=== PATIENT | male | born 1980 | race Caucasian/White ===

== ENCOUNTER 2023-04-25 21:57 | Inpatient (IN) | payer MEDICAID ==
[~2023-04-25] VITALS: Ht 165.1 cm; Wt 72.6 kg
[2023-04-25 22:54] LABS: BASOPHILS % 0.5 % (0.0-2.0); EOSINOPHILS % 1.8 % (0.0-5.0); HEMATOCRIT. 38.2 % (42.0-52.0); HEMOGLOBIN. 13.1 g/dL (14.0-18.0); LYMPHOCYTES % 17.8 % (20.0-50.0); MEAN CORPUSCULAR HEMOGLOBIN 27.6 pg (28.0-32.0); MEAN CORPUSCULAR HGB CONC 34.3 g/dL (31.0-37.0); MEAN CORPUSCULAR VOLUME 80.5 fL (80.0-94.0); MEAN PLATELET VOLUME 9.1 fl (7.4-10.4); MONOCYTES % 8.2 % (2.0-8.0); NEUTROPHILS % 71.7 % (40.0-76.0); PLATELET 183 x1000/uL (130-400); RED BLOOD CELL COUNT 4.74 mill/uL (4.7-6.1); RED CELL DISTRIBUTION WIDTH 13.6 % (11.6-14.6); WHITE BLOOD COUNT 7.1 x1000/uL (4.5-11.0)
[2023-04-25 23:00] LABS: CHLORIDE 108 mEq/L (98-107); INDEX HEMOLYSI 1 (1-3); INDEX ICTERIC 1 (1-4); INDEX LIPEMIC 1 (1-3); POTASSIUM 3.6 mEq/L (3.5-5.1); SODIUM 137 mEq/L (136-145)
[2023-04-25 23:09] LABS: ALANINE AMINOTRANSFERASE 49 IU/L (13-61); ALBUMIN 3.7 g/dL (3.4-5.0); ASPARTATE AMINOTRANSFERASE 24 IU/L (15-37); BILIRUBIN TOTAL 0.3 mg/dL (0.1-1.0); CALCIUM 8.6 mg/dL (8.5-10.1); CARBON DIOXIDE 25 mEq/L (21-32); CREATININE 0.8 mg/dL (0.6-1.3); GLUCOSE 129 mg/dL (70-105); PROTEIN TOTAL 7.3 g/dL (6.0-8.3); UREA NITROGEN BLOOD 13 mg/dL (7-21)
[2023-04-25 23:10] LABS: TROPONIN I HIGH SENSITIVITY < 4 ng/L (<78)
[2023-04-26 00:58] LABS: CLARITY URINE CLOUDY (CLEAR); COLOR URINE YELLOW (YELLOW); GLUCOSE URINE NEGATIVE (NEGATIVE); KETONES URINE TRACE (NEGATIVE); LEUKOCYTE ESTERASE URINE NEGATIVE (NEGATIVE); NITRITE URINE NEGATIVE (NEGATIVE); OCCULT BLOOD URINE NEGATIVE (NEGATIVE); PH URINE 7.5 (4.5-8.0); PROTEIN URINE NEGATIVE (NEGATIVE); SPECIFIC GRAVITY URINE 1.018 (1.005-1.030); UROBILINOGEN URINE 0.2 E.U./dL (0.2-1.0)
[2023-04-26 01:01] LABS: BACTERIA URINE NONE SEEN; RBC URINE NONE SEEN /hpf (0-2); SQUAMOUS EPITHELIAL CELL URINE NONE SEEN /lpf (RARE/1+); WBC URINE NONE SEEN /hpf (0-2); YEAST URINE NONE SEEN
[2023-04-26] MEDS ORDERED: FAMOTIDINE 20MG/2ML VIAL IV STA (01:46)
[2023-04-26] MEDS ORDERED: ONDANSETRON HCL 4MG/2ML INJ IV STA (01:46)
[2023-04-26] MEDS ORDERED: MORPHINE SULFATE 4 MG/ML CPJ (NOT FOR IM USE) IV STA (01:46)
[2023-04-26] MEDS ORDERED: SODIUM CHLORIDE 0.9% 1,000 ML IV ONE (02:00)
[2023-04-26] MEDS ORDERED: ONDANSETRON HCL 4MG/2ML INJ IV NR (05:15)
[2023-04-26] MEDS ORDERED: FAMOTIDINE 20MG/2ML VIAL IV NR ×2 (05:15)
[2023-04-26] MEDS ORDERED: MORPHINE SULFATE 4 MG/ML CPJ (NOT FOR IM USE) IV NR (05:15)
[2023-04-26 16:00] VITALS: BP 127/72; PULSE 66; RESP 20; TEMP 97.7
[2023-04-26] MEDS ORDERED: ONDANSETRON HCL 4MG/2ML INJ IV PRN (16:30)
[2023-04-26] MEDS: FAMOTIDINE 20MG/2ML VIAL IV SCH (17:13)
[2023-04-26] MEDS: KETOROLAC 30MG/ML VIAL IV PRN (17:13)
[2023-04-26 17:24] VITALS: BP 138/79; PULSE 81; RESP 16; TEMP 98.9
[2023-04-26] MEDS ORDERED: LEVOFLOXACIN 500MG PREMIX 100 ML IV SCH (17:30)
[2023-04-26 20:00] VITALS: BP 110/64; PULSE 66; RESP 17; TEMP 98.4
[2023-04-27] VITALS: BP 104/64; PULSE 86; RESP 20; TEMP 97.3
[2023-04-27 04:00] VITALS: BP 109/55; PULSE 69; RESP 16; TEMP 98.7
[2023-04-27 08:00] VITALS: BP 122/73; PULSE 82; RESP 20; TEMP 99.2
[2023-04-27] MEDS: FAMOTIDINE 20MG/2ML VIAL IV SCH (09:10)
[2023-04-27] MEDS: KETOROLAC 30MG/ML VIAL IV PRN (11:21)
[2023-04-27] MEDS ORDERED: HYDR-4001 MT (11:52)
[2023-04-27 12:00] VITALS: BP 115/73; PULSE 76; RESP 18; TEMP 98.6
[2023-04-27 16:00] VITALS: BP 103/71; PULSE 77; RESP 19; TEMP 97.7
== END 2023-04-27 15:48 | disposition home or self-care (01) ==
LOC: EDBD 21:57 → ER 21:57 → 6EST 04-26 04:56
PROVIDERS: ADMIT Internal Medicine; ATTEND Internal Medicine
DX: K81.0 Acute cholecystitis (principal)
CPT/HCPCS: 36415; 74176; 76705; 80053; 81003; 83605; 84484; 85025; 93005; 99285; J1885; J1956; J2270; J2405; J3490; J7030